=== PATIENT | female | born 1995 | race Asian ===

== ENCOUNTER 2018-11-28 20:53 | Emergency (ER) | payer SELFPAY ==
--- NOTE | 2018-11-28 21:05 | NUR ---
PT REFUSING TRIAGE, DOES NOT WISH TO BE SEEN AT THIS TIME.
--- NOTE | 2018-11-28 21:10 | NUR ---
PATIENT LEFT WITHOUT BEING SEEN BY DR. SMART. NO FURTHER CARE PROVIDED FOR PATIENT.
== END 2018-11-28 21:05 | disposition left against medical advice (07) ==
LOC: MED 20:53
DX: Z53.21 Procedure and treatment not carried out due to patient leaving prior to being seen by health care provider (principal)